=== PATIENT | male | born 1995 | race Caucasian/White ===

== ENCOUNTER 2018-07-03 12:34 | Emergency (ER) | payer SELFPAY ==
[~2018-07-03] VITALS: Ht 162.6 cm; Wt 68.0 kg
[2018-07-03 12:54] VITALS: BP 120/74
[2018-07-03] MEDS ORDERED: LIDOCAINE HCL/PF 1% 2ML VIAL INFIL ONE (13:15)
[2018-07-03] MEDS ORDERED: LIDOCAINE HCL/PF 1% 10 MG/ML 5ML VIAL IJ NR (13:30)
== END 2018-07-03 13:59 | disposition home or self-care (01) ==
LOC: ER 13:05
DX: T16.1XXA Foreign body in right ear, initial encounter (principal); F12.10 Cannabis abuse, uncomplicated; Z98.890 Other specified postprocedural states; X58.XXXA Exposure to other specified factors, initial encounter; Y93.89 Activity, other specified; Y92.89 Other specified places as the place of occurrence of the external cause; Y99.8 Other external cause status
CPT/HCPCS: 69200; 99284; J3490

== ENCOUNTER 2019-01-19 21:28 | Emergency (ER) | payer MEDICAID ==
[~2019-01-19] VITALS: Ht 162.6 cm; Wt 69.0 kg
[2019-01-19] MEDS ORDERED: DEXAMETHASONE 10 MG/ML VIAL IM ONE (22:15)
[2019-01-19] MEDS ORDERED: KETOROLAC 30MG/ML VIAL IM ONE (22:15)
[2019-01-19] MEDS ORDERED: AMOXICILLIN/POTASSIUM CLAVULANATE 875/125MG TAB PO ONE (22:15)
[2019-01-20 00:04] VITALS: BP 119/69
== END 2019-01-20 00:05 | disposition home or self-care (01) ==
LOC: ER 21:55
DX: J02.9 Acute pharyngitis, unspecified (principal); F17.210 Nicotine dependence, cigarettes, uncomplicated
CPT/HCPCS: 96372; 99283; 99406; J1100; J1885

== ENCOUNTER 2019-02-01 16:20 | Emergency (ER) | payer MEDICAID ==
[~2019-02-01] VITALS: Ht 165.1 cm; Wt 66.0 kg
[2019-02-01 18:05] VITALS: BP 110/71
== END 2019-02-01 18:22 | disposition home or self-care (01) ==
LOC: ER 16:20
DX: J03.90 Acute tonsillitis, unspecified (principal)
CPT/HCPCS: 99282

== ENCOUNTER 2019-02-12 20:16 | Emergency (ER) | payer MEDICAID ==
[~2019-02-12] VITALS: Ht 180.3 cm; Wt 75.0 kg
[2019-02-12 21:15] VITALS: BP 138/72
== END 2019-02-12 22:30 | disposition home or self-care (01) ==
LOC: ER 20:16
DX: S81.802A Unspecified open wound, left lower leg, initial encounter (principal); W33.01XA Accidental discharge of shotgun, initial encounter; Y93.89 Activity, other specified; Y92.89 Other specified places as the place of occurrence of the external cause; Y99.8 Other external cause status
CPT/HCPCS: 99281

== ENCOUNTER 2023-08-16 19:43 | Emergency (ER) | payer MEDICAID, OTHER ==
[~2023-08-16] VITALS: Ht 160 cm; Wt 66.0 kg
[~2023-08-16 19:43] MED LIST: IBUP-2029 MT
[2023-08-16 19:59] VITALS: O2SAT 99
[2023-08-16 20:16] LABS: BASOPHILS % 0.3 % (0.0-2.0); EOSINOPHILS % 0.4 % (0.0-5.0); HEMATOCRIT. 45.1 % (42.0-52.0); HEMOGLOBIN. 15.7 g/dL (14.0-18.0); MEAN CORPUSCULAR HEMOGLOBIN 31.1 pg (28.0-32.0); MEAN CORPUSCULAR HGB CONC 34.8 g/dL (31.0-37.0); MEAN CORPUSCULAR VOLUME 89.5 fL (80.0-94.0); MEAN PLATELET VOLUME 7.9 fl (7.4-10.4); MONOCYTES % 7.9 % (2.0-8.0); NEUTROPHILS % 70.4 % (40.0-76.0); PLATELET 276 x1000/uL (130-400); RED BLOOD CELL COUNT 5.04 mill/uL (4.7-6.1); RED CELL DISTRIBUTION WIDTH 13.7 % (11.6-14.6); WHITE BLOOD COUNT 8.6 x1000/uL (4.5-11.0)
[2023-08-16 20:39] LABS: ACETAMINOPHEN < 2 ug/mL (10-30); ALANINE AMINOTRANSFERASE 58 IU/L (10-49); ASPARTATE AMINOTRANSFERASE 38 IU/L (<34); BILIRUBIN TOTAL 3.6 mg/dL (0.1-1.0); CARBON DIOXIDE 26 mEq/L (21-32); CHLORIDE 101 mEq/L (98-107); GLUCOSE 133 mg/dL (70-105); POTASSIUM 3.1 mEq/L (3.5-5.1); PROTEIN TOTAL 8.5 g/dL (6.0-8.3); SODIUM 135 mEq/L (136-145); THYROID STIMULATING HORMONE 0.47 uIU/mL (0.55-4.78); UREA NITROGEN BLOOD 16 mg/dL (9-23)
[2023-08-16 20:43] LABS: ETHANOL BLOOD < 10 mg/dL (<10); TROPONIN I HIGH SENSITIVITY < 4 ng/L (3.0-53)
[2023-08-16 20:52] LABS: TROPONIN I HIGH SENSITIVITY < 4 ng/L (3.0-53)
[2023-08-16] MEDS ORDERED: POTASSIUM CHLORIDE 20MEQ/PACKET PO ONE (21:00)
[2023-08-17] MEDS: POTASSIUM CHLORIDE 20MEQ/PACKET PO NR (00:36)
[2023-08-17 00:45] LABS: TROPONIN I HIGH SENSITIVITY < 4 ng/L (3.0-53)
[2023-08-17 04:10] LABS: CLARITY URINE CLEAR (CLEAR); COLOR URINE DARK YELLOW (YELLOW); GLUCOSE URINE NEGATIVE (NEGATIVE); KETONES URINE 2+ (NEGATIVE); LEUKOCYTE ESTERASE URINE NEGATIVE (NEGATIVE); NITRITE URINE NEGATIVE (NEGATIVE); OCCULT BLOOD URINE NEGATIVE (NEGATIVE); PROTEIN URINE TRACE (NEGATIVE); SPECIFIC GRAVITY URINE 1.028 (1.005-1.030)
[2023-08-17 05:04] LABS: BACTERIA URINE TRACE; RBC URINE NONE SEEN /hpf (0-2); SQUAMOUS EPITHELIAL CELL URINE NONE SEEN /lpf (RARE/1+); WBC URINE NONE SEEN /hpf (0-2)
[2023-08-17 05:13] LABS: *AMPHETAMINES SCREEN URINE NEGATIVE (NEGATIVE); *BARBITURATES SCREEN URINE NEGATIVE (NEGATIVE); *BENZODIAZEPINES SCREEN URINE NEGATIVE (NEGATIVE); *COCAINE SCREEN URINE NEGATIVE (NEGATIVE); CANNABINOID URINE SCREEN PRESUMPTIVE POSITIVE (NEGATIVE); ECSTASY MDMA SCREEN URINE NEGATIVE (NEGATIVE); METHADONE URINE SCREEN Neg (NEGATIVE); OPIATES URINE SCREEN NEGATIVE (NEGATIVE); PHENCYCLIDINE URINE SCREEN NEGATIVE (NEGATIVE)
[2023-08-17] MEDS: LORAZEPAM 1MG TABLET PO ONE (10:11)
[2023-08-17] MEDS: OLANZAPINE 5MG TABLET ODT PO SCH (10:12)
[2023-08-17 15:51] VITALS: BP 108/70; PULSE 65; RESP 18; TEMP 98.2
== END 2023-08-17 15:52 ==
LOC: ER 19:43
DX: R07.89 Other chest pain (principal); F22 Delusional disorders; E87.6 Hypokalemia; E78.00 Pure hypercholesterolemia, unspecified; Z20.822 Contact with and (suspected) exposure to COVID-19
CPT/HCPCS: 36415; 71045; 76705; 80053; 80305; 80307; 80320; 80329; 81003; 82248; 84443; 84484; 85025; 87426; 93005; 99285; G0480

== ENCOUNTER 2024-05-18 11:46 | Emergency (ER) | payer MEDICAID ==
[~2024-05-18] VITALS: Ht 175.3 cm; Wt 80.0 kg
[2024-05-18 11:52] VITALS: O2SAT 98
[2024-05-18 12:14] LABS: BASOPHILS % 0.5 % (0.0-2.0); EOSINOPHILS % 0.4 % (0.0-5.0); HEMATOCRIT. 43.2 % (42.0-52.0); HEMOGLOBIN. 14.7 g/dL (14.0-18.0); LYMPHOCYTES % 18.5 % (20.0-50.0); MEAN CORPUSCULAR HEMOGLOBIN 30.4 pg (28.0-32.0); MEAN CORPUSCULAR VOLUME 89.3 fL (80.0-94.0); MEAN PLATELET VOLUME 8.5 fl (7.4-10.4); MONOCYTES % 7.1 % (2.0-8.0); NEUTROPHILS % 73.5 % (40.0-76.0); PLATELET 220 x1000/uL (130-400); RED BLOOD CELL COUNT 4.84 mill/uL (4.7-6.1); RED CELL DISTRIBUTION WIDTH 13.4 % (11.6-14.6); WHITE BLOOD COUNT 7.1 x1000/uL (4.5-11.0)
[2024-05-18 12:24] LABS: CHLORIDE 105 mEq/L (98-107); POTASSIUM 3.1 mEq/L (3.5-5.1); SODIUM 142 mEq/L (136-145)
[2024-05-18 12:25] LABS: CALCIUM 9.5 mg/dL (8.7-10.4); CARBON DIOXIDE 24 mEq/L (21-32)
[2024-05-18 12:30] LABS: CREATININE 0.8 mg/dL (0.6-1.3); GLUCOSE 116 mg/dL (70-105)
[2024-05-18 12:32] LABS: ACETAMINOPHEN < 2 ug/mL (10-30)
[2024-05-18 12:41] LABS: ETHANOL BLOOD < 10 mg/dL (<10); UREA NITROGEN BLOOD < 5 mg/dL (9-23)
[2024-05-18] MEDS: SODIUM CHLORIDE 0.9% 1,000 ML IV ONE (13:00)
[2024-05-18 14:02] LABS: CLARITY URINE CLEAR (CLEAR); COLOR URINE YELLOW (YELLOW); GLUCOSE URINE NEGATIVE (NEGATIVE); KETONES URINE 2+ (NEGATIVE); LEUKOCYTE ESTERASE URINE NEGATIVE (NEGATIVE); NITRITE URINE NEGATIVE (NEGATIVE); OCCULT BLOOD URINE NEGATIVE (NEGATIVE); PROTEIN URINE TRACE (NEGATIVE); SPECIFIC GRAVITY URINE 1.011 (1.005-1.030); UROBILINOGEN URINE 0.2 E.U./dL (0.2-1.0)
[2024-05-18] MEDS ORDERED: TETANUS, DIPHTHERIA, PERTUSSIS VAC/PF 0.5ML (>10YR OLD) IM ONE (14:15)
[2024-05-18] MEDS ORDERED: BACITRACIN ZINC OINT UDPKT TOP ONE (14:15)
[2024-05-18 14:28] LABS: MUCUS URINE TRACE /lpf (NONE/TRACE); SQUAMOUS EPITHELIAL CELL URINE RARE /lpf (RARE/1+)
[2024-05-18 14:29] LABS: BACTERIA URINE TRACE; RBC URINE 0-2 /hpf (0-2); WBC URINE 0-2 /hpf (0-2)
[2024-05-18 14:41] LABS: *AMPHETAMINES SCREEN URINE NEGATIVE (NEGATIVE)
[2024-05-18 14:42] LABS: *BARBITURATES SCREEN URINE NEGATIVE (NEGATIVE); *BENZODIAZEPINES SCREEN URINE NEGATIVE (NEGATIVE)
[2024-05-18 14:43] LABS: *COCAINE SCREEN URINE NEGATIVE (NEGATIVE); CANNABINOID URINE SCREEN PRESUMPTIVE POSITIVE (NEGATIVE); ECSTASY MDMA SCREEN URINE NEGATIVE (NEGATIVE); METHADONE URINE SCREEN NEGATIVE (NEGATIVE); OPIATES URINE SCREEN NEGATIVE (NEGATIVE); PHENCYCLIDINE URINE SCREEN NEGATIVE (NEGATIVE)
[2024-05-18] MEDS: POTASSIUM CHLORIDE 20MEQ TABLET SR PO NR (15:56)
[2024-05-18] MEDS: TETANUS, DIPHTHERIA, PERTUSSIS VAC/PF 0.5ML (>10YR OLD) IM ONE (16:05)
[2024-05-18] MEDS: BACITRACIN ZINC OINT UDPKT TOP NR (16:09)
[2024-05-18 17:50] LABS: CHLORIDE 109 mEq/L (98-107); POTASSIUM 3.3 mEq/L (3.5-5.1); SODIUM 143 mEq/L (136-145)
[2024-05-18 17:51] LABS: CARBON DIOXIDE 25 mEq/L (21-32)
[2024-05-18 17:52] LABS: CALCIUM 8.9 mg/dL (8.7-10.4)
[2024-05-18 17:56] LABS: CREATININE 0.8 mg/dL (0.6-1.3); GLUCOSE 104 mg/dL (70-105)
[2024-05-18 18:01] LABS: UREA NITROGEN BLOOD < 5 mg/dL (9-23)
[2024-05-19 13:30] VITALS: TEMP 36.78072
[2024-05-20 05:00] VITALS: BP 112/79; PULSE 70; RESP 18; O2SAT 99
== END 2024-05-20 08:10 | disposition short-term general hospital (02) ==
LOC: ER 13:54
DX: R45.851 Suicidal ideations (principal); F17.200 Nicotine dependence, unspecified, uncomplicated; F12.10 Cannabis abuse, uncomplicated; E78.00 Pure hypercholesterolemia, unspecified; Z20.822 Contact with and (suspected) exposure to COVID-19
CPT/HCPCS: 80305; 80048; 81003; 80307; 80329; 80320; 85025; 36415; 90715; 93005; 90471; 96360; 96361; 99285; 87426; J7030; Z7610; A4606; G0480